=== PATIENT | male | born 1995 | race Caucasian/White ===

== ENCOUNTER → 2019-12-22 15:32 | Outpatient (CLI) | payer OTHER, SELFPAY ==
[2014-08-14 17:52] VITALS: BMI 39.7
[2019-12-22 17:37] LABS: Absolute Lymphocyte Count 2.31 X10^3/uL (0.83-4.51); Absolute Neutrophil Count 7.2 X10^3/uL (2.0-7.7); Hematocrit 46.7 % (40-54); Lymphocyte # 2.31 X10^3/ul (4.0); Lymphocyte % 22.3 % (19-41); Mean Corp Hgb Conc 34.3 g/dL (32-36); Mean Corpuscular Hgb 29.3 pg (27.0-32.0); Mean Corpuscular Volume 85.5 fL (80-94); Mean Platelet Vol. 11.3 fl (6.2-12.0); Monocyte# 0.59 X10^3/uL; Monocyte% 5.7 % (0-10); NRBC Flagged by Analyzer 0 % (0-5); Neutrophil # 7.22 X10^3/uL (2.7-7.7); Neutrophil % 69.6 % (47-70); Platelet Count 288 K/mm3 (150-450); RBC Distribution Width CV 11.9 % (11.6-14.6); RBC Distribution Width SD 37.1 fl (35.1-43.9); Red Blood Count 5.46 M/mm3 (4.6-6.2); White Blood Count 10.4 K/mm3 (4.4-11.0)
[2019-12-22 18:01] LABS: ALB/GLOB Ratio 1.2 RATIO (0.9-2.4); AST(SGOT) 13 U/L (15-37); Alanine Aminotransfer ALT/SGPT 47 U/L (16-61); Albumin, Serum 4.6 g/dL (3.2-5.0); Alkaline Phosphatase 91 U/L (45-117); Anion Gap 7 (5-15); BUN 12 mg/dL (7-18); BUN/Creat Ratio 10.6 RATIO (10-20); Calcium,Total 9.3 mg/dL (8.5-10.1); Chloride 104 mmol/L (98-107); Creatinine, Serum 1.13 mg/dL (0.70-1.30); EST Glomerular Filtration Rate 84 mL/min (>60); Est Glom Filt Rate - Afr Amer 102 mL/min (>60); Globulin 3.7 g/dL (2.2-4.2); Glucose 90 mg/dL (74-106); Potassium 4.2 mmol/L (3.5-5.1); Protein, Total 8.3 g/dL (6.4-8.2); Sodium Level 138 mmol/L (136-145); Thyroid Stim Hormone (TSH) 0.85 uIU/mL (0.358-3.74)
== END ==
PROVIDERS: PCP Family Medicine; Referring Provider Family Medicine; Visit Provider Family Medicine
DX: F20.9 Schizophrenia, unspecified (principal)
CPT/HCPCS: 36415; 80053; 84443; 85025

== ENCOUNTER 2020-01-10 15:31 | Emergency (ER) | payer OTHER, SELFPAY ==
[2020-01-10 15:32] VITALS: BP 153/90; PULSE 82; RESP 16; TEMP 36.8; O2SAT 99
[2020-01-10 15:33] VITALS: BP 147/89; PULSE 82; RESP 14; TEMP 36.9; O2SAT 100; BMI 28.9
--- NOTE | 2020-01-10 15:46 | ED.RN ---
start Abilify 2 weeks ago. states I'm taking it like I'm suppose too. constanza, rn [id number]
--- NOTE | 2020-01-10 15:56 | EKG12_ITS ---
Test Reason : Blood Pressure : / mmHG Vent. Rate : 087 BPM Atrial Rate : 087 BPM P-R Int : 144 ms QRS Dur : 082 ms QT Int : 336 ms P-R-T Axes : 044 001 022 degrees QTc Int : 404 ms Normal sinus rhythm Normal ECG Confirmed by MARCELO FELIZ, LORE ([id number]), aerodynamics teacher CURLY ARCE ([id number]) on 01/11/2020 9:05:24 AM Referred By: CHRISTOPHER Confirmed By:LORE ROBERTSON MD
[2020-01-10 16:22] LABS: Absolute Lymphocyte Count 2.63 X10^3/uL (0.83-4.51); Absolute Neutrophil Count 6.5 X10^3/uL (2.0-7.7); Eosinophil# 0.28 X10^3/uL; Eosinophils% 2.8 % (0-5); Hematocrit 45.6 % (40-54); Hemoglobin 15.7 g/dL (13.0-16.5); Lymphocyte # 2.63 X10^3/ul (4.0); Lymphocyte % 25.9 % (19-41); Mean Corp Hgb Conc 34.4 g/dL (32-36); Mean Corpuscular Hgb 29.6 pg (27.0-32.0); Mean Platelet Vol. 10.5 fl (6.2-12.0); Monocyte# 0.62 X10^3/uL; Monocyte% 6.1 % (0-10); NRBC Flagged by Analyzer 0 % (0-5); Neutrophil # 6.48 X10^3/uL (2.7-7.7); Neutrophil % 63.9 % (47-70); Platelet Count 261 K/mm3 (150-450); RBC Distribution Width CV 12.1 % (11.6-14.6); RBC Distribution Width SD 38.5 fl (35.1-43.9); White Blood Count 10.1 K/mm3 (4.4-11.0)
--- NOTE | 2020-01-10 16:26 | CT_ITS ---
STUDY: CT BRAIN WITHOUT CONTRAST REASON FOR EXAM: Male, 24 years old. ALTERED MENTAL STATUS, SAW OBJECT AT HOME THAT WASN''T THERE, THOUGHTS TO HARM OTHERS TECHNIQUE: Transaxial CT imaging of the brain was performed without administration of intravenous contrast material. Individualized dose optimization techniques were used for this CT. COMPARISON: No relevant priors. FINDINGS: Normal soft tissue structures. Normal calvarium. Normal size ventricles and extra-axial spaces for the patient''s age. Normal white matter tracts of the cerebral hemispheres. Normal basal ganglia and thalami. Normal brainstem. Normal cerebellum. There is no intracranial hemorrhage. There are no findings of an acute ischemic infarction. Normal visualized paranasal sinuses. CT/Brain/Head without Contrast IMPRESSION: Normal unenhanced CT scan of the brain. Electronically Signed: Wei Schulz MD at 16:54 EDT , Service support ,
--- NOTE | 2020-01-10 16:27 | ED.RN ---
discussion with ed dr about risk of harm to self and staff. sitter placed at bedside per dr orders. violent V hanging in doorway. discussion with sitter about not barring patients exit if he tries to force is way out. security notified about patient. dulce leos, rn [id number]
--- NOTE | 2020-01-10 16:31 | ED.VIS.GEN ---
History of Present Illness Chief Complaint: Suicidal Informant: Patient Narrative: 24-year-old male was brought to the emergency department with police after the police were called to his primary care physician's office. The patient was reportedly expressing suicidal and homicidal thoughts. Patient tells me that for the past several years he has had thoughts of harming himself and others. He has had auditory and visual hallucinations. The auditory hallucinations can consist of sounds and voices. Sometimes the voices are clear and other times they are mumbled. He tells me that when they are clear sometimes they tell him to do things. However he abruptly stops that line of conversation. He states that he has variations in sleep sometimes getting very little sleep and other times sleeping 12 or more hours. 2 weeks ago he started Abilify through his primary care physician. He has never reached out to anyone regarding his psychiatric symptoms until recently. He denies any prior TBI. Past Medical History - Allergies and Home Meds Allergies/Adverse Reactions: Allergies No Known Allergies Allergy (Verified 08/14/14 11:38) Primary Care Physician: Jamie Weiss MD [Primary Care Provider] - Prior records reviewed: Yes Surgical History: noncontributory Smoking Status: Heavy Smoker (>10/day) Drugs: None Review of Systems General: Denies: Chills, Fever, Sweats Eyes: Denies: Visual changes - bilaterally, Diplopia ENT: Denies: Rhinorrhea, Sore throat Cardiovascular: Denies: Chest pain, Palpitations Respiratory: Denies: Dyspnea, Cough, Dyspnea on exertion Gastrointestinal: Denies: Abdominal pain, Nausea, Vomiting, Diarrhea, Melena, Hematochezia Genitourinary: Denies: Dysuria, Hematuria, Frequency Musculoskeletal: Denies: Back pain, Extremity Pain Skin: Denies: Rash, Wounds Neurological: Denies: Headache, Weakness, Numbness Psych: Reports: Depression, Suicidal thoughts, - - Homicidal thoughts, - - Auditory visual hallucinations Physical Exam Vital Signs/Narrative: Vital Signs Temp Pulse Resp BP Pulse Ox 01/10/20 15:33 98.4 F 82 14 147/89 H 100 01/10/20 15:32 98.3 F 82 16 153/90 H 99 Inital Vital Signs reviewed: Yes General: Well nourished, Well developed, No Acute Distress Head: Normocephalic, Atraumatic Eyes: Perrl, EOMI ENT: Moist mucous membranes, No rhinorrhea Neck: Supple, Nontender Cardiovascular: Regular rate, Regular rhythm, No murmurs Respiratory: No distress, CTA bilaterally, Chest nontender Abdomen: Soft, Nontender, Nondistended, Normal bowel sounds Back: Nontender, Normal Inspection Extremities: Nontender, No edema Skin: Normal color, No rash Neurological: Alert, Oriented x3, Cranial nerves II-XII grossly intact, Normal Strength, Normal Sensation Psychological: - - Patient states he does have thoughts of harming himself and others at times. He admits to visual hallucinations as well as auditory. He has a blunted affect. He appears internally agitated. He has linear thinking. He abruptly cut off the interview when discussing the voices. Diagnostic/Tx/Re-eval - EKG Initial EKG Interpretation: Sinus Rhythm - EKG demonstrates a normal sinus rhythm at a rate of 87 without ectopy or concerning features of ACS. - Medical Decision Making The patient I believe needs to be psychiatrically evaluated. He accepted an offer to provide him Geodon to help him relax. I am going to have social work assistance in placing him. We will work on medically clearing him. ED Disposition - Plan for ED Patient: Disposition: Psychiatric Hospital or Unit Diagnosis: Schizophrenia, Hallucinations, Homicidal thoughts, Suicidal thoughts Referrals: Jamie Weiss MD [Primary Care Provider] -
[2020-01-10 16:35] LABS: ALB/GLOB Ratio 1.2 RATIO (0.9-2.4); AST(SGOT) 12 U/L (15-37); Alanine Aminotransfer ALT/SGPT 51 U/L (16-61); Albumin, Serum 4.2 g/dL (3.2-5.0); Alkaline Phosphatase 87 U/L (45-117); Anion Gap 6 (5-15); BUN 13 mg/dL (7-18); BUN/Creat Ratio 13.9 RATIO (10-20); Calcium,Total 8.5 mg/dL (8.5-10.1); Chloride 104 mmol/L (98-107); Creatinine, Serum 0.94 mg/dL (0.70-1.30); EST Glomerular Filtration Rate 104 mL/min (>60); Est Glom Filt Rate - Afr Amer 126 mL/min (>60); Estimated Creatinine Clearance 124.04 ml/min; Globulin 3.5 g/dL (2.2-4.2); Glucose 90 mg/dL (74-106); Potassium 4.1 mmol/L (3.5-5.1); Protein, Total 7.7 g/dL (6.4-8.2); Sodium Level 139 mmol/L (136-145)
[2020-01-10] MEDS: Ziprasidone IM 20 MG/ML VIAL 10 MG IM ×2 (16:35→18:50)
[2020-01-10 17:01] VITALS: RESP 16
[2020-01-10 17:39] LABS: Amphetamine Urine VISTA NEGATIVE (<1000 ng/mL); Barbiturate Urine VISTA NEGATIVE (< 200 ng/mL); Benzodiazepine Urine VISTA NEGATIVE (< 200 ng/mL); Cocaine Urine VISTA NEGATIVE (< 300 ng/mL); Ecstacy Urine VISTA NEGATIVE (< 500 ng/mL); Methadone Urine VISTA NEGATIVE (< 300 ng/mL); PCP Urine VISTA NEGATIVE (< 25 ng/mL); THC Urine VISTA NEGATIVE (< 50 ng/mL); Vista UDS pH Range 5
--- NOTE | 2020-01-10 17:41 | CM.ED ---
SOCIAL WORK Informant: Dr. Sanches Reason for Consult: Suicidal and Homicidal Ideations Chief Complaint: Patient presents to [facility] ER from Dr. Weiss's office by [facility] police for suicidal and homicidal ideations. Marital/Social History: Single Living Situation: Lives home with family Support/Resources: Myself History: None Education and Employment History: Patient reports has Bachelor's Degree in [employer]. Patient states works part-time at [employer] [facility] [employer] Treatment/History: Patient reports no diagnosis of mental health. Patient admits to anxiety, auditory hallucinations, paranoia and delusions. Patient states is prescribed Abilify but I thought it was for heartburn. Triggers/Stressors: When asked about triggers or stressors patient states, depends on the day. Coping Skills: Positive self-talk Abuse Issues: Patient denies any history of emotional, physical or sexual abuse. Substance Abuse: Patient denies any history of substance abuse. Patient states I do smoke cigarettes. Patient reports to smoke 1 pack of cigarettes every 2 days. Risk to Self/Others: Suicidal: Patient reports to have suicidal thoughts at times. Patient currently denies thoughts, plan or intent. Homicidal: Patient admits to homicidal thoughts at times. Patient states, I can normally calm myself down. Mental Status Exam: Orientation: A&Ox3 Memory: Fair Appearance/General Behavior: agitated, calm Mood/Affect: flat, depressed, guarded Communication Pattern: limited eye contact, responds to questions Judgment: Poor Assessment: Collaboration with Dr. Sanches after MD evaluation. Dr. Sanches recommending inpatient psych hospitalization. Patient discussed command hallucinations and quickly dropped conversation with Dr. Sanches when hallucinations were being explored. Patient with suicidal and homicidal ideations at physicians office prior to arrival to [facility] ER at Dr. Weiss's office. Met with patient in room. Introduced role and reason for referral. Patient sitting up in bed. Patient with limited eye contact and flat affect throughout assessment. Patient admits to suicidal and homicidal ideation at times. Patient states, I discussed some things with my doctor and then I was brought here. Patient admits to auditory hallucinations, delusions and paranoia. Patient states this began several years ago and recently has been unable to control them. Patient in agreement with hospitalization. [place]ip has been completed by Dr. Sanches. This worker to facilitate placement. Plan: Referral for inpatient psych hospitalization Kimberly Sage BORING MACHINE OPERATOR, FAMILY WORKER
--- NOTE | 2020-01-10 17:57 | CM.ED ---
SOCIAL WORK Referral faxed and called to [facility]. Will fax COVID-19 results once received. Pending review at this time. Kimberly Sage, PRESERVATIONIST, FORENSIC MANAGER
[2020-01-10 19:00] VITALS: RESP 16
--- NOTE | 2020-01-10 19:15 | CM.ED ---
SOCIAL WORK Patient accepted to [facility] pending negative COVID test. Awaiting results at this time. Will fax once received. Intake to provide accepting information once COVID test results received. Kimberly Sage MSW, COMMERCIAL ACCOUNT OFFICER
--- NOTE | 2020-01-10 20:15 | CM.ED ---
SOCIAL WORK Negative COVID-19 results and copy of [place] Slip faxed to [facility]. Kimberly Sage, TRAINING PROJECT MANAGER, MANAGER PRODUCT SUPPORT
[2020-01-10 20:19] VITALS: BP 120/59; PULSE 77; RESP 16; TEMP 36.6; O2SAT 98
--- NOTE | 2020-01-10 20:48 | CM.ED ---
SOCIAL WORK Received call back from [facility] with [facility]. Patient accepted by Dr. Tay. Nurse to call report to [phone]. Per Homa, transportation arranged with [place] to pick patient up at 10p. Staff nicholas. Kimberly Sage MSW, SENIOR JAVA DEVELOPER
--- NOTE | 2020-01-10 20:56 | CM.ED ---
SOCIAL WORK Call to patient's parents per request. No answer, left voicemail message with this worker's contact information. Patient updated. D. Chu, SENIOR HR MANAGER, SUPPLY CHAIN PROJECT MANAGER
== END 2020-01-10 21:45 ==
PROVIDERS: Emergency Provider Emergency Medicine; PCP Family Medicine
DX: F20.9 Schizophrenia, unspecified (principal); R45.850 Homicidal ideations; R45.851 Suicidal ideations; F17.200 Nicotine dependence, unspecified, uncomplicated
CPT/HCPCS: 70450; 80053; 80307; 80320; 85025; 87635; 93005; 96372; 99283; G0480; J3486; U0003

== ENCOUNTER → 2020-06-27 11:54 | Outpatient (CLI) | payer OTHER, SELFPAY ==
[2020-06-27 15:22] LABS: Absolute Lymphocyte Count 2.36 X10^3/uL (0.83-4.51); Absolute Neutrophil Count 5.9 X10^3/uL (2.0-7.7); Basophil# 0.09 X10^3/uL; Eosinophil# 0.23 X10^3/uL; Eosinophils% 2.5 % (0-5); Hematocrit 45.7 % (40-54); Hemoglobin 15.4 g/dL (13.0-16.5); Lymphocyte # 2.36 X10^3/ul (4.0); Lymphocyte % 25.4 % (19-41); Mean Corp Hgb Conc 33.7 g/dL (32-36); Mean Corpuscular Hgb 29.9 pg (27.0-32.0); Mean Corpuscular Volume 88.7 fL (80-94); Mean Platelet Vol. 11.1 fl (6.2-12.0); Monocyte# 0.67 X10^3/uL; Monocyte% 7.2 % (0-10); NRBC Flagged by Analyzer 0 % (0-5); Neutrophil % 63.4 % (47-70); Platelet Count 270 K/mm3 (150-450); RBC Distribution Width CV 12.3 % (11.6-14.6); RBC Distribution Width SD 39.9 fl (35.1-43.9); Red Blood Count 5.15 M/mm3 (4.6-6.2); White Blood Count 9.3 K/mm3 (4.4-11.0)
[2020-06-27 15:50] LABS: ALB/GLOB Ratio 1.2 RATIO (0.9-2.4); AST(SGOT) 34 U/L (15-37); Alanine Aminotransfer ALT/SGPT 88 U/L (16-61); Albumin, Serum 4.4 g/dL (3.2-5.0); Alkaline Phosphatase 78 U/L (45-117); Anion Gap 5 (5-15); BUN 18 mg/dL (7-18); BUN/Creat Ratio 18.1 RATIO (10-20); Chloride 103 mmol/L (98-107); EST Glomerular Filtration Rate 97 mL/min (>60); Est Glom Filt Rate - Afr Amer 117 mL/min (>60); Globulin 3.6 g/dL (2.2-4.2); Glucose 87 mg/dL (74-106); Potassium 4.4 mmol/L (3.5-5.1); Sodium Level 137 mmol/L (136-145); Thyroid Stim Hormone (TSH) 0.93 uIU/mL (0.358-3.74)
== END ==
PROVIDERS: PCP Family Medicine; Visit Provider Family Medicine
DX: F20.9 Schizophrenia, unspecified (principal); I10 Essential (primary) hypertension
CPT/HCPCS: 36415; 80053; 84443; 85025

== ENCOUNTER 2021-04-23 14:34 | Emergency (ER) | payer OTHER, SELFPAY ==
[2021-04-23 14:38] VITALS: BP 164/78; PULSE 113; RESP 16; TEMP 36.6; O2SAT 100; BMI 37.7
--- NOTE | 2021-04-23 14:40 | EKG12_ITS ---
Test Reason : CP Blood Pressure : / mmHG Vent. Rate : 095 BPM Atrial Rate : 095 BPM P-R Int : 136 ms QRS Dur : 078 ms QT Int : 340 ms P-R-T Axes : 035 011 052 degrees QTc Int : 427 ms Normal sinus rhythm Normal ECG Confirmed by NOHEMI FELIZ, AMAN ([id number]), graphic editor CURLY ARCE ([id number]) on 04/24/2021 8:40:11 AM Referred By: RODOLFO/BB Confirmed By:AMAN SONG MD
[2021-04-23 14:49] VITALS: BP 139/70; PULSE 83; RESP 25; O2SAT 99
--- NOTE | 2021-04-23 14:53 | RAD_ITS ---
STUDY: X-RAY CHEST REASON FOR EXAM: Male, 25 years old. Chest pain TECHNIQUE: Single AP portable view of the chest. COMPARISON: None. FINDINGS: EKG electrodes are seen. Mild degree of increased markings in the right infrahilar region. Early right lower lobe infiltrate should be ruled out. There is no demonstrated pleural abnormality. Normal size heart. Normal mediastinum and lyly. Normal visualized pulmonary arteries. Normal visualized aortic arch and descending thoracic aorta. Normal visualized thoracic spine. Normal visualized ribs, clavicles, and shoulders. There is no demonstrated abnormality of the visualized soft tissue structures of the upper abdomen. RAD/Chest 1 View (Portable) IMPRESSION: Mild degree of increased markings in the right infrahilar region. Early infiltrate should be ruled out. Electronically Signed: Albaro Pettit MD at 15:23 EST ,
[2021-04-23 14:54] VITALS: O2SAT 100
[2021-04-23 15:00] LABS: Absolute Neutrophil Count 6.7 X10^3/uL (2.0-7.7); Basophil# 0.11 X10^3/uL; Eosinophil# 0.37 X10^3/uL; Eosinophils% 3.2 % (0-5); Hematocrit 44.1 % (40-54); Hemoglobin 15.1 g/dL (13.0-16.5); Lymphocyte % 31.3 % (19-41); Mean Corp Hgb Conc 34.2 g/dL (32-36); Mean Corpuscular Hgb 29.7 pg (27.0-32.0); Mean Corpuscular Volume 86.8 fL (80-94); Mean Platelet Vol. 10.6 fl (6.2-12.0); Monocyte# 0.68 X10^3/uL; Monocyte% 5.9 % (0-10); NRBC Flagged by Analyzer 0 % (0-5); Neutrophil # 6.68 X10^3/uL (2.7-7.7); Neutrophil % 58.1 % (47-70); Platelet Count 272 K/mm3 (150-450); RBC Distribution Width CV 12.2 % (11.6-14.6); RBC Distribution Width SD 39.1 fl (35.1-43.9); Red Blood Count 5.08 M/mm3 (4.6-6.2); White Blood Count 11.5 K/mm3 (4.4-11.0)
[2021-04-23 15:24] LABS: D-Dimer Quantitative (DVT/PE) <= 0.27 FEU/ug/m (0.27-0.49)
[2021-04-23 15:26] LABS: Anion Gap 6 (5-15); BUN 8 mg/dL (7-18); BUN/Creat Ratio 7.7 RATIO (10-20); Calcium,Total 8.5 mg/dL (8.5-10.1); Chloride 107 mmol/L (98-107); Creatinine, Serum 1.04 mg/dL (0.70-1.30); EST Glomerular Filtration Rate 91 mL/min (>60); Est Glom Filt Rate - Afr Amer 111 mL/min (>60); Estimated Creatinine Clearance 111.14 ml/min; Glucose 103 mg/dL (74-106); Potassium 3.7 mmol/L (3.5-5.1); Sodium Level 138 mmol/L (136-145); Troponin-I HS 5 pg/mL (3.0-78.0)
[2021-04-23 15:59] VITALS: PULSE 80; RESP 15; O2SAT 100
[2021-04-23 17:04] VITALS: BP 155/63; PULSE 66; RESP 22; O2SAT 100
[2021-04-23 17:10] LABS: Troponin-I HS 5 pg/mL (3.0-78.0)
--- NOTE | 2021-04-23 17:19 | EDS_ITS ---
HPI History of Present Illness Chief Complaint: Chest Pain Narrative Narrative: 25-year-old male presenting with chest pain. He describes it as sharp pain in the left upper chest which lasted about 2 seconds 2 h ago. He states that he felt a little bit nauseous and sweaty when this occurred. Patient states that he does not have any cardiac or pulmonary history. He is a smoker however. Patient had a return of this once and it was similar nature however with the first when he states he was a little bit lightheaded and sweaty and with the second 1 he did not have any associated symptoms. Patient denies fever, cough. He states prior to this he felt well. He does admit to drinking 2 energy drinks a day and states that this is unchanged. He drinks 1 in the morning 1 in the afternoon. Sometimes he does drink more than this. He doesn't have any milligrams of caffeine or any energy drinks. Denies history of DVT/PE and has no risk factors. PFSH PFSH Medical History Asthma Bipolar disorder Smoker Home Medications ziprasidone HCl 60 mg PO BID 04/23/21 [History Last Taken Unknown] Allergy/AdvReac Type Severity Reaction Status Date / Time No Known Allergies Allergy Verified 04/23/21 14:41 Surgical History History of appendectomy Social History Smoking Status: Heavy Smoker (>10/day) ROS [facility] ED Constitutional Constitutional ED: Denies chills or fever(s) Eyes Eyes: Denies blurry vision or change in vision ENT ENT ED: Denies rhinorrhea or sore throat Cardiovascular Cardiovascular: Reports as per HPI Respiratory/Chest Respiratory/Chest: Denies cough or dyspnea Gastrointestinal Gastrointestinal: Denies abdominal pain or nausea Genitourinary Genitourinary ED: Denies dysuria or hematuria Musculoskeletal Musculoskeletal: Denies arthralgias or myalgias Integumentary Denies abscess or rash Neurologic Neurologic: Denies headache(s) or weakness EXAM Physical Exam Const Vital Signs: 04/23/21 14:38 04/23/21 14:49 04/23/21 14:50 Temperature 97.8 F Temperature Source Temporal Pulse Rate 113 H 83 Respiratory Rate 16 25 H Respiratory Effort Normal Blood Pressure 164/78 H 139/70 H Blood Pressure Mean 106 93 Pulse Ox 100 99 Oxygen Delivery Method Room Air Room Air 04/23/21 14:54 04/23/21 15:59 04/23/21 17:04 Temperature Temperature Source Pulse Rate 80 66 Respiratory Rate 15 22 H Respiratory Effort Blood Pressure 155/63 H Blood Pressure Mean 93 Pulse Ox 100 100 100 Oxygen Delivery Method Room Air Room Air Room Air Positive well nourished General Appearance ED: NAD; Negative for pallor HEENT Reports moist mucous membranes normocephalic and atraumatic Eyes PERRL and EOMs intact bilaterally General Eye ED: Negative for pale conjunctiva or scleral icterus Neck no lymphadenopathy and supple Chest Wall inspection of chest normal Resp normal respiratory effort Effort and Inspection: respiratory distress Cardio regular rhythm Rate: tachycardic Extremity normal to inspection General Extremety ED: Negative for edema or tenderness General Extremity: Negative for edema Neuro oriented x3 Sensorium / Orientation: awake and alert Psych mental status grossly normal Skin General Skin Exam: Negative for jaundice or pallor Heart Score History: Slightly/Non-Suspicious ECG: Normal Age: </= 45 years Risk Factors: No Risk Factors Troponin: </= Normal Limit Score: 0 MDM MDM MDM Narrative Medical decision making narrative: Patient presenting with a sharp pain that happened twice. The first 1 was associated with lightheadedness, nausea, sweatiness. This lasted about 2 s. I obtained an EKG which on my interpretation shows a sinus tachycardia with a ventricular rate of 95 bpm without sign of ischemic change or dysrhythmia. Chest x-ray on my interpretation does not show any acute cardiopulmonary process however the radiologist does feel that there may be some increased markings in the right infrahilar region. Clinically the patient is not hypoxic he he is not tachypneic. He is a little tachycardic but also had 2 energy drinks today. His heart rate is now 66 after being evaluated. D-dimer is negative. CBC and BMP are unremarkable. He he has 2 troponins are 2 h apart which were both 5. I feel this point the patient is safe to be discharged home. I did offer a Covid swab due to the reading on the chest x-ray however the patient declines this. I feel that given the normal vital signs other than the tachycardia which I can attribute to the energy drinks, he has a negative D-dimer which would make Covid less likely. Patient will be discharged home stable condition. Impression: 1. Chest pain noncardiac 2. Lightheadedness 3. Nausea Lab Data Labs: Laboratory Results - last 24 hr 04/23/21 04/23/21 04/23/21 14:50 14:50 14:50 WBC 11.5 H RBC 5.08 Hgb 15.1 Hct 44.1 MCV 86.8 MCH 29.7 MCHC 34.2 RDW Std Deviation 39.1 RDW Coeff of Debra 12.2 Plt Count 272 MPV 10.6 Immature Gran % (Auto) 0.500 Neut % (Auto) 58.1 Lymph % (Auto) 31.3 [place] % (Auto) 5.9 Eos % (Auto) 3.2 Baso % (Auto) 1.0 Absolute Neuts (auto) 6.7 Absolute Lymphs (auto) 3.60 Nucleated RBC % 0 D-Dimer Quant (PE/DVT) <= 0.27 Sodium 138 Potassium 3.7 Chloride 107 Carbon Dioxide 25.0 Anion Gap 6 BUN 8 Creatinine 1.04 Estim Creat Clear Calc 111.14 Est GFR (MDRD) Af Amer 111 Est GFR (MDRD) Non-Af 91 BUN/Creatinine Ratio 7.7 L Glucose 103 Calcium 8.5 Troponin I High Sens 5 04/23/21 16:35 WBC RBC Hgb Hct MCV MCH MCHC RDW Std Deviation RDW Coeff of Debra Plt Count MPV Immature Gran % (Auto) Neut % (Auto) Lymph % (Auto) [place] % (Auto) Eos % (Auto) Baso % (Auto) Absolute Neuts (auto) Absolute Lymphs (auto) Nucleated RBC % D-Dimer Quant (PE/DVT) Sodium Potassium Chloride Carbon Dioxide Anion Gap BUN Creatinine Estim Creat Clear Calc Est GFR (MDRD) Af Amer Est GFR (MDRD) Non-Af BUN/Creatinine Ratio Glucose Calcium Troponin I High Sens 5 Radiography Diagnostic Testing: Clinical Impression(s) from Imaging Studies Chest X-Ray 04/23/21 14:53 IMPRESSION: Mild degree of increased markings in the right infrahilar region. Early infiltrate should be ruled out. Electronically Signed: Albaro Pettit MD at 15:23 EST , Discharge Plan Triage Chief Complaint: Chest Pain ED Provider: Elmo Blakely Dx/Rx/DC Orders Prescriptions: No Action ziprasidone HCl 60 mg capsule 60 mg PO BID RF: 0 Primary Care Provider: Jamie Weiss
[2021-04-23 18:04] VITALS: BP 134/87; PULSE 91; RESP 15; O2SAT 99
== END 2021-04-23 18:06 | disposition home or self-care (01) ==
PROVIDERS: Emergency Provider Student in an Organized Health Care Education/Training Program; PCP Family Medicine; Visit Provider Student in an Organized Health Care Education/Training Program
DX: R07.89 Other chest pain (principal); F31.9 Bipolar disorder, unspecified; R42 Dizziness and giddiness; R11.0 Nausea; F17.200 Nicotine dependence, unspecified, uncomplicated; Z79.899 Other long term (current) drug therapy
CPT/HCPCS: 71045; 80048; 84484; 85025; 85379; 93005; 99284; A4216

== ENCOUNTER → 2022-03-26 | Outpatient (CLI) | payer OTHER, SELFPAY ==
--- NOTE | 2022-03-26 15:22 | RAD_ITS ---
EXAM: XR ABDOMEN, 2 VIEWS CLINICAL INDICATION: LLQ PAIN TECHNIQUE: Frontal view of the abdomen/pelvis with upright view of the abdomen. This report was created using go2 media report generation technology. COMPARISON: None. FINDINGS: LOWER THORAX: No acute pathology. INTRAPERITONEAL SPACE: No free air. GASTROINTESTINAL TRACT: Unremarkable. Non-obstructive. No bowel or stomach distention. ORGANS: Unremarkable as visualized. No organomegaly. No abnormal calcifications. BONES/JOINTS: No acute pathology. SOFT TISSUES: No acute pathology. RAD/Abd Inc Decub and/or Erect IMPRESSION: Unremarkable abdominal series. Electronically Signed: Jsutus Talamantes MD at 16:54 EST ,
[2022-03-26 18:04] LABS: Absolute Lymphocyte Count 3.05 X10^3/uL (0.83-4.51); Absolute Neutrophil Count 6.6 X10^3/uL (2.0-7.7); Basophil# 0.11 X10^3/uL; Eosinophils% 3.7 % (0-5); Hematocrit 43.7 % (40-54); Hemoglobin 14.6 g/dL (13.0-16.5); Lymphocyte # 3.05 X10^3/ul (0.83-4.51); Mean Corp Hgb Conc 33.4 g/dL (32-36); Mean Corpuscular Hgb 29.1 pg (27.0-32.0); Mean Corpuscular Volume 87.1 fL (80-94); Mean Platelet Vol. 10.9 fl (6.2-12.0); Monocyte# 0.67 X10^3/uL; Monocyte% 6.2 % (0-10); NRBC Flagged by Analyzer 0 % (0-5); Neutrophil # 6.59 X10^3/uL (2.7-7.7); Neutrophil % 60.5 % (47-70); Platelet Count 278 K/mm3 (150-450); RBC Distribution Width CV 12.4 % (11.6-14.6); RBC Distribution Width SD 39.5 fl (35.1-43.9); Red Blood Count 5.02 M/mm3 (4.6-6.2); White Blood Count 10.9 K/mm3 (4.4-11.0)
[2022-03-26 18:34] LABS: ALB/GLOB Ratio 1.1 RATIO (0.9-2.4); AST(SGOT) 18 U/L (15-37); Alanine Aminotransfer ALT/SGPT 65 U/L (16-61); Alkaline Phosphatase 100 U/L (45-117); Anion Gap 6 (5-15); BUN 13 mg/dL (7-18); CRP 7.49 mg/L (0.0-3.0); Calcium,Total 8.7 mg/dL (8.5-10.1); Chloride 102 mmol/L (98-107); Creatinine, Serum 0.93 mg/dL (0.70-1.30); EST Glomerular Filtration Rate 103 mL/min (>60); Est Glom Filt Rate - Afr Amer 125 mL/min (>60); Globulin 3.5 g/dL (2.2-4.2); Glucose 84 mg/dL (74-106); Potassium 4.2 mmol/L (3.5-5.1); Protein, Total 7.5 g/dL (6.4-8.2); Sodium Level 139 mmol/L (136-145)
== END | disposition home or self-care (01) ==
LOC: MTLAB 15:21
PROVIDERS: PCP Family Medicine; Referring Provider Family Medicine; Visit Provider Family Medicine
DX: R10.32 Left lower quadrant pain (principal)
CPT/HCPCS: 36415; 74019; 80053; 85025; 86140

== ENCOUNTER 2023-06-27 04:49 | Emergency (ER) | payer OTHER, SELFPAY ==
[2023-06-27 04:50] VITALS: BP 196/121; PULSE 90; RESP 17; TEMP 36.2; O2SAT 100; BMI 35.4
--- NOTE | 2023-06-27 04:50 | EKG12_ITS ---
Test Reason : CP Blood Pressure : / mmHG Vent. Rate : 084 BPM Atrial Rate : 084 BPM P-R Int : 138 ms QRS Dur : 074 ms QT Int : 332 ms P-R-T Axes : 019 -01 018 degrees QTc Int : 392 ms Normal sinus rhythm Normal ECG Confirmed by Leon Mock ([id number]), digital editor NASIM YOUSSEF ([id number]) on 06/30/2023 1:26:34 PM Referred By: LES Confirmed By:Leon Mock
--- NOTE | 2023-06-27 05:08 | RAD_ITS ---
STUDY: X-RAY CHEST REASON FOR EXAM: Male, 27 years old. Chest pain TECHNIQUE: PA and lateral views of the chest. COMPARISON: Comparison is made with prior study dated April 23, 2021. FINDINGS: EKG electrodes are seen. The lungs are clear and expanded. There is no demonstrated pleural abnormality. Normal size heart. Normal mediastinum and lyly. Normal visualized pulmonary arteries. Normal visualized aortic arch and descending thoracic aorta. Normal visualized thoracic spine. Normal visualized ribs, clavicles, and shoulders. There is no demonstrated abnormality of the visualized soft tissue structures of the upper abdomen. RAD/Chest PA and Lateral IMPRESSION: Normal x-ray examination of the chest. Electronically Signed: Albaro Pettit MD at 8:06 EDT ,
--- NOTE | 2023-06-27 05:10 | EDS_ITS ---
HPI History of Present Illness Chief Complaint: Chest Pain Informant: patient and parent Narrative Narrative: Patient is a 27-year-old male with past medical history of bipolar disorder asthma and nicotine use. He states over the last 3 days he will have intermit tent clutching left-sided chest pain. He states will last for a few seconds and then resolve. He states that today he felt the symptoms were lasting longer and secondary to this comes in for evaluation. He denies any history of illicit drug use he denies any recent travel surgery or history of DVT/PE. He denies any family history of cardiac disease at a young age. He also denies any recent trauma or excessive activity. However with the recurrent symptoms and his concern this could be cardiac he presents for evaluation [facility] Medical History Asthma Bipolar disorder Smoker Home Medications ziprasidone HCl 60 mg capsule 60 mg PO DAILY 04/23/21 [History Last Taken Unk nown] Allergy/AdvReac Type Severity Reaction Status Date / Time No Known Allergies Allergy Verified 06/27/23 04:54 Surgical History History of appendectomy Social History Smoking Status: Former smoker ROS [facility] ED Constitutional Constitutional ED: Denies chills or fever(s) ENT ENT ED: Denies sore throat Cardiovascular Cardiovascular: Reports chest pain; Denies palpitations or racing heartbeat Respiratory/Chest Respiratory/Chest: Denies cough or dyspnea Gastrointestinal Gastrointestinal: Denies abdominal pain, diarrhea, nausea or vomiting Genitourinary Genitourinary ED: Denies dysuria Musculoskeletal Musculoskeletal: Denies back pain or myalgias Integumentary Denies rash Neurologic Neurologic: Denies headache(s) Psychiatric Psychiatric: Reports anxiety Hematologic/Lymphatic Hematologic/Lymphatic: Denies easy bleeding or easy bruising EXAM Physical Exam Const Vital Signs: 06/27/23 04:50 06/27/23 04:54 06/27/23 05:49 Temperature 97.2 F L Temperature Source Temporal Pulse Rate 90 72 Respiratory Rate 17 18 Respiratory Effort Normal Blood Pressure 196/121 H 126/51 H Blood Pressure Mean 146 76 Pulse Ox 100 96 Oxygen Delivery Method Room Air Room Air 06/27/23 06:00 Temperature Temperature Source Pulse Rate 70 Respiratory Rate 16 Respiratory Effort Blood Pressure 128/86 H Blood Pressure Mean 100 Pulse Ox 96 Oxygen Delivery Method Room Air Positive well nourished and well developed General Appearance ED: well developed; Negative for pallor HEENT HEENT Narrative: Normocephalic atraumatic Eyes PERRL and EOMs intact bilaterally General Eye ED: Negative for scleral icterus Neck supple Neck Narrative: No nuchal rigidity or meningeal signs Chest Wall palpation of chest normal Chest Narrative: No overlying soft tissue change of the chest wall such as erythema to suggest cellulitis or abscess no abrasions or ecchymosis to suggest trauma No bony deformity or crepitus palpated Resp normal respiratory effort and clear to auscultation bilaterally Resp Narrative: Breath sounds are diminished throughout but overall clear to auscultation Cardio regular rate and regular rhythm Rate: other Other Details: Heart is regular rate and rhythm without murmurs rubs or gallop Radial and carotid pulses are equal and symmetric GI normal to inspection, nondistended, normoactive bowel sounds, non-tender, non- distended and no masses GI Narrative: No voluntary guarding or rigidity or pulsatile mass Auscultation: normoactive bowel sounds Palpation: soft Extremity normal to inspection Extremity Narrative: No asymmetric edema no pitting edema negative Homans' sign bilaterally Neuro oriented x3 and CN's II-XII intact bilaterally Sensorium / Orientation: alert Motor Exam: strength 5/5 throughout Psych Psych Narrative: Patient has a anxious affect Skin no rashes or lesions noted, no wounds and skin turgor normal General Skin Exam: Negative for jaundice or pallor MDM MDM MDM Narrative Medical decision making narrative: Patient arrived to the ER hypertensive otherwise with stable vitals. He reported that his chest pain was intermittent in nature and short-lived and not associated with nausea vomiting diaphoresis or shortness of breath. He also is low risk for cardiovascular disease as his only risk factor is nicotine use. He also denies any recent travel surgery or history of DVT/PE and is PERC negative so I felt no need for a D-dimer or CTA. Patient also denied any recent sick symptoms which would put him at risk for potential myocarditis. Even though he is low risk as he reported chest discomfort a cardiac workup was obtained. EKG was normal sinus rhythm and troponin is 6 going against acute coronary syndrome or myocarditis. There is no cardiac dysrhythmia noted while on the monitor in the ER. As he is PERC negative I do not feel need for a D-dimer or CTA. He had no clinically significant electrolyte abnormalities either and chest x-ray reveals no acute lung pathology. He was given Toradol Norflex and Ativan and his blood pressure improved and his symptoms resolved. Therefore at this time a s he is low risk for acute coronary syndrome and has a negative workup with improvement of symptoms there is no need for further evaluation and is otherwise safe for discharge History & Record Review Discussion w/independent historian: Patient and Family Lab Data Attestation: I reviewed the patient's lab results. Labs: Laboratory Results - last 24 hr 06/27/23 04:57 WBC 12.2 H RBC 5.18 Hgb 14.8 Hct 44.4 MCV 85.7 MCH 28.6 MCHC 33.3 RDW Std Deviation 38.5 RDW Coeff of Debra 12.4 Plt Count 317 MPV 10.9 Immature Gran % (Auto) 0.400 Neut % (Auto) 58.4 Lymph % (Auto) 30.7 Morgan % (Auto) 6.6 Eos % (Auto) 3.0 Baso % (Auto) 0.9 Absolute Neuts (auto) 7.1 Absolute Lymphs (auto) 3.74 Nucleated RBC % 0 Sodium 138 Potassium 4.1 Chloride 105 Carbon Dioxide 27.0 Anion Gap 6 BUN 19 H Creatinine 0.93 Estim Creat Clear Calc 148.33 Est GFR (MDRD) Af Amer 124 Est GFR (MDRD) Non-Af 102 BUN/Creatinine Ratio 20.5 H Glucose 95 Calcium 8.7 Magnesium 2.3 Troponin I High Sens 6 Radiography Diagnostic Testin view chest x-ray as interpreted by the emergency medicine physician reveals no acute infiltrate pneumothorax pleural effusion or widening of the mediastinum Discharge Plan Triage Chief Complaint: Chest Pain ED Provider: Jeremy Pineda Dx/Rx/DC Orders Clinical Impression: Acute nonspecific chest pain with low risk of coronary artery disease, Nicotine use disorder, Bipolar disorder Instructions: ED Chest Pain, Uncertain Cause Prescriptions: No Action ziprasidone HCl 60 mg capsule 60 mg PO DAILY Patient Comments: TAKE 1 CAPSULE BY MOUTH TWICE DAILY Primary Care Provider: Jamie Weiss Referrals: Jamie Weiss MD [Primary Care Provider] - Activity Restrictions/Additional Instructions: Your workup today showed no signs of abnormal heart rhythm or heart damage. Therefore follow-up with your family doctor to discuss further testing studies if symptoms persist and return to the ER should you have any further concerns Disposition Disposition: Home, Self Care
[2023-06-27 05:18] LABS: Absolute Lymphocyte Count 3.74 X10^3/uL (0.83-4.51); Absolute Neutrophil Count 7.1 X10^3/uL (2.0-7.7); Basophil# 0.11 X10^3/uL; Basophil% 0.9 % (0-1); Eosinophil# 0.36 X10^3/uL; Hematocrit 44.4 % (40-54); Hemoglobin 14.8 g/dL (13.0-16.5); Lymphocyte # 3.74 X10^3/ul (0.83-4.51); Lymphocyte % 30.7 % (19-41); Mean Corp Hgb Conc 33.3 g/dL (32-36); Mean Corpuscular Hgb 28.6 pg (27.0-32.0); Mean Corpuscular Volume 85.7 fL (80-94); Mean Platelet Vol. 10.9 fl (6.2-12.0); Monocyte% 6.6 % (0-10); NRBC Flagged by Analyzer 0 % (0-5); Neutrophil # 7.14 X10^3/uL (2.7-7.7); Neutrophil % 58.4 % (47-70); Platelet Count 317 K/mm3 (150-450); RBC Distribution Width CV 12.4 % (11.6-14.6); RBC Distribution Width SD 38.5 fl (35.1-43.9); Red Blood Count 5.18 M/mm3 (4.6-6.2); White Blood Count 12.2 K/mm3 (4.4-11.0)
[2023-06-27] MEDS: LORazepam 2 MG/ML Syringe 1 MG IV (05:33)
[2023-06-27 05:36] LABS: Anion Gap 6 (5-15); BUN 19 mg/dL (7-18); BUN/Creat Ratio 20.5 RATIO (10-20); Calcium,Total 8.7 mg/dL (8.5-10.1); Chloride 105 mmol/L (98-107); Creatinine, Serum 0.93 mg/dL (0.70-1.30); EST Glomerular Filtration Rate 102 mL/min (>60); Est Glom Filt Rate - Afr Amer 124 mL/min (>60); Estimated Creatinine Clearance 148.33 ml/min; Glucose 95 mg/dL (74-106); Magnesium 2.3 mg/dL (1.6-2.6); Potassium 4.1 mmol/L (3.5-5.1); Sodium Level 138 mmol/L (136-145); Troponin-I HS 6 pg/mL (3.0-78.0)
[2023-06-27 05:49] VITALS: BP 126/51; PULSE 72; RESP 18; O2SAT 96
[2023-06-27 06:00] VITALS: BP 128/86; PULSE 70; RESP 16; O2SAT 96
[2023-06-27] MEDS: Orphenadrine 60 MG/2 ML Ampul IV (06:26)
[2023-06-27] MEDS: Ketorolac 30 MG/ML Syringe IV (06:26)
[2023-06-27 06:58] VITALS: BP 130/81; PULSE 69; RESP 16; TEMP 36.2; O2SAT 99
== END 2023-06-27 06:59 | disposition home or self-care (01) ==
PROVIDERS: Emergency Provider Emergency Medicine; PCP Family Medicine; Visit Provider Emergency Medicine
DX: R07.9 Chest pain, unspecified (principal); F31.9 Bipolar disorder, unspecified; J45.909 Unspecified asthma, uncomplicated; Z87.891 Personal history of nicotine dependence
CPT/HCPCS: 71046; 80048; 83735; 84484; 85025; 93005; 96374; 96375; 99283; A4216

== ENCOUNTER 2023-11-05 23:05 | Emergency (ER) | payer OTHER, SELFPAY ==
[2023-11-05 23:05] VITALS: BP 157/101; PULSE 100; RESP 17; TEMP 36.1; O2SAT 97; BMI 34.7
[2023-11-05 23:31] LABS: Absolute Lymphocyte Count 3.33 X10^3/uL (0.83-4.51); Absolute Neutrophil Count 8.8 X10^3/uL (2.0-7.7); Basophil# 0.11 X10^3/uL; Basophil% 0.8 % (0-1); Eosinophil# 0.41 X10^3/uL; Hematocrit 42.8 % (40-54); Hemoglobin 14.8 g/dL (13.0-16.5); Lymphocyte # 3.33 X10^3/ul (0.83-4.51); Lymphocyte % 24.5 % (19-41); Mean Corp Hgb Conc 34.6 g/dL (32-36); Mean Corpuscular Hgb 29.1 pg (27.0-32.0); Mean Corpuscular Volume 84.3 fL (80-94); Mean Platelet Vol. 10.8 fl (6.2-12.0); Monocyte% 6.6 % (0-10); NRBC Flagged by Analyzer 0 % (0-5); Neutrophil % 64.7 % (47-70); Platelet Count 288 K/mm3 (150-450); RBC Distribution Width CV 12.8 % (11.6-14.6); Red Blood Count 5.08 M/mm3 (4.6-6.2); White Blood Count 13.6 K/mm3 (4.4-11.0)
[2023-11-05] MEDS: LORazepam 2 MG/ML Syringe IM (23:32)
[2023-11-05] MEDS: DiphenhydrAMINE 50 MG/ML Syringe 25 MG IM (23:32)
[2023-11-05 23:48] LABS: Anion Gap 7 (5-15); BUN 14 mg/dL (7-18); BUN/Creat Ratio 13.3 RATIO (10-20); Calcium,Total 8.7 mg/dL (8.5-10.1); Chloride 108 mmol/L (98-107); Creatinine, Serum 1.05 mg/dL (0.70-1.30); EST Glomerular Filtration Rate 89 mL/min (>60); Est Glom Filt Rate - Afr Amer 107 mL/min (>60); Glucose 123 mg/dL (74-106); Potassium 3.8 mmol/L (3.5-5.1); Sodium Level 141 mmol/L (136-145)
--- NOTE | 2023-11-06 03:10 | ED.RN ---
PT BEEN REFERRED TO ETHAN COYNE
--- NOTE | 2023-11-06 03:58 | EDS_ITS ---
HPI History of Present Illness Chief Complaint: Mental Health Informant: patient and parent Narrative Narrative: Patient is a 28-year-old male with past medical history of bipolar disorder. Reportedly he stopped taking his medications months ago. Father states that this morning he told him that he wanted to shoot himself with a gun. Father also states that it appears the patient has been hallucinating. The patient does state that this morning he tried to kill himself. With concern he is having an exacerbation of his psychosis and would potentially cause self-harm he was brought in for evaluation The patient does not offer much history and states that he does not want to answer questions [facility] Medical History Smoker Asthma Bipolar disorder Home Medications ?Medication ?Instructions ?Recorded ?Last Taken ?Type aripiprazole 5 mg tablet 5 mg PO QHS #90 tabs 10/15/23 Unknown Rx propranolol 10 mg tablet 10 mg PO TID PRN anxiety #90 tabs 10/15/23 Unknown Rx Allergy/AdvReac Type Severity Reaction Status Date / Time No Known Allergies Allergy Verified 11/05/23 23:13 Family History Other Alcoholism Diabetes Hypertension Melanoma Surgical History History of appendectomy Social History Smoking Status: Former smoker alcohol intake: never substance use type: does not use what type of physical activity do you participate in: none ROS ROS ED Review of Systems ROS Unobtainable: other Details: Unable to obtain review of systems as patient is uncooperative EXAM Physical Exam Const Vital Signs: 11/05/23 23:05 Temperature 97 F L Temperature Source Temporal Pulse Rate 100 Respiratory Rate 17 Blood Pressure 157/101 H Blood Pressure Mean 119 Pulse Ox 97 Oxygen Delivery Method Room Air Positive well nourished, well developed and obese General Appearance ED: well developed; Negative for pallor Nutritional Appearance: obese HEENT HEENT Narrative: Normocephalic atraumatic Eyes PERRL and EOMs intact bilaterally Neck supple Chest Wall palpation of chest normal Resp normal respiratory effort and clear to auscultation bilaterally Cardio regular rate and regular rhythm GI normal to inspection, nondistended, normoactive bowel sounds, non-tender, non- distended and no masses Auscultation: normoactive bowel sounds Palpation: soft Extremity normal to inspection Neuro CN's II-XII intact bilaterally and no sensory deficits noted Sensorium / Orientation: alert Motor Exam: strength 5/5 throughout Psych Psych Narrative: Patient has an agitated affect and does admit to suicidal ideation Skin no rashes or lesions noted and no wounds General Skin Exam: Negative for jaundice or pallor MDM MDM MDM Narrative Medical decision making narrative: Patient arrived to the ER hyper tensive but otherwise with vitals. Family reported he has stated he wanted to shoot himself with a gun and patient even stated that he tried to kill himself this morning. With his agitated affect report of suicidal ideation and the fact he has not been taking his medications he is high likelihood to harm himself and also is demonstrating that he is not caring for himself. Secondary to this it was felt that he will need placed in a psychiatric center for safety and care. Therefore a psychiatric workup was obtained which revealed no clinically significant finding. The patient was medically cleared and evaluated by crisis center. After crisis center evaluated the patient they do agree that placement is the most appropriate option at this time. [facility] was contacted and they do agree to accept the patient. The patient is hemodynamically stable and is medically cleared for transfer/placement in psychiatric hospital History & Record Review Discussion w/independent historian: Patient and Family Lab Data Attestation: I reviewed the patient's lab results. Labs: Laboratory Results - last 24 hr 11/05/23 23:20 WBC 13.6 H RBC 5.08 Hgb 14.8 Hct 42.8 MCV 84.3 MCH 29.1 MCHC 34.6 RDW Std Deviation 39.0 RDW Coeff of Debra 12.8 Plt Count 288 MPV 10.8 Immature Gran % (Auto) 0.400 Neut % (Auto) 64.7 Lymph % (Auto) 24.5 [place] % (Auto) 6.6 Eos % (Auto) 3.0 Baso % (Auto) 0.8 Absolute Neuts (auto) 8.8 H Absolute Lymphs (auto) 3.33 Nucleated RBC % 0 Sodium 141 Potassium 3.8 Chloride 108 H Carbon Dioxide 26.0 Anion Gap 7 BUN 14 Creatinine 1.05 Estim Creat Clear Calc 128.80 Est GFR (MDRD) Af Amer 107 Est GFR (MDRD) Non-Af 89 BUN/Creatinine Ratio 13.3 Glucose 123 H Calcium 8.7 Ethyl Alcohol 6.0 Discharge Plan Triage Chief Complaint: Mental Health ED Provider: Jeremy Pineda Dx/Rx/DC Orders Clinical Impression: Bipolar disorder, Depression with suicidal ideation Prescriptions: No Action aripiprazole 5 mg tablet 5 mg PO QHS Qty: 90 1RF propranolol 10 mg tablet 10 mg PO TID PRN (Reason: anxiety) Qty: 90 1RF Primary Care Provider: Tee Weiss Referrals: Tee Weiss MD [Primary Care Provider] - Print Language: [place] Island[place] Disposition Disposition: Psychiatric Hospital or Unit Discharge Location: [facility]
[2023-11-06] MEDS: LORazepam 1 MG Tablet 2 MG PO (06:00)
[2023-11-06 07:20] LABS: Amphetamine Urine VISTA NEGATIVE (<1000 ng/mL); Barbiturate Urine VISTA NEGATIVE (< 200 ng/mL); Benzodiazepine Urine VISTA NEGATIVE (< 200 ng/mL); Cocaine Urine VISTA NEGATIVE (< 300 ng/mL); Ecstacy Urine VISTA NEGATIVE (< 500 ng/mL); Methadone Urine VISTA NEGATIVE (< 300 ng/mL); PCP Urine VISTA NEGATIVE (< 25 ng/mL); THC Urine VISTA NEGATIVE (< 50 ng/mL); Vista UDS pH Range 5
[2023-11-06 07:46] VITALS: BP 132/86; PULSE 99; RESP 18; TEMP 36.5; O2SAT 99
== END 2023-11-06 07:46 ==
PROVIDERS: Emergency Provider Emergency Medicine; PCP Family Medicine; Visit Provider Emergency Medicine
DX: F31.9 Bipolar disorder, unspecified (principal); R45.851 Suicidal ideations; J45.909 Unspecified asthma, uncomplicated; E66.9 Obesity, unspecified; Z87.891 Personal history of nicotine dependence
CPT/HCPCS: 80048; 80307; 82077; 85025; 96372; 99285

== ENCOUNTER 2024-03-07 19:30 | Emergency (ER) | payer OTHER, SELFPAY ==
[2024-03-07 19:31] VITALS: BP 145/67; PULSE 90; RESP 16; TEMP 37.1; O2SAT 99; BMI 37.8
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
[2024-03-07 20:05] LABS: Absolute Lymphocyte Count 2.38 X10^3/uL (0.83-4.51); Absolute Neutrophil Count 6.9 X10^3/uL (2.0-7.7); Basophil# 0.09 X10^3/uL; Basophil% 0.9 % (0-1); Eosinophil# 0.26 X10^3/uL; Eosinophils% 2.5 % (0-5); Hematocrit 43.6 % (40-54); Hemoglobin 14.5 g/dL (13.0-16.5); Lymphocyte # 2.38 X10^3/ul (0.83-4.51); Mean Corp Hgb Conc 33.3 g/dL (32-36); Mean Corpuscular Hgb 28.5 pg (27.0-32.0); Mean Corpuscular Volume 85.7 fL (80-94); Mean Platelet Vol. 10.4 fl (6.2-12.0); Monocyte# 0.63 X10^3/uL; Monocyte% 6.1 % (0-10); NRBC Flagged by Analyzer 0 % (0-5); Neutrophil % 66.7 % (47-70); Platelet Count 242 K/mm3 (150-450); RBC Distribution Width CV 11.9 % (11.6-14.6); RBC Distribution Width SD 37.3 fl (35.1-43.9); Red Blood Count 5.09 M/mm3 (4.6-6.2); White Blood Count 10.3 K/mm3 (4.4-11.0)
[2024-03-07 20:17] LABS: Anion Gap 5 (5-15); BUN 17 mg/dL (7-18); BUN/Creat Ratio 16.5 RATIO (10-20); Calcium,Total 8.4 mg/dL (8.5-10.1); Chloride 107 mmol/L (98-107); Creatinine, Serum 1.03 mg/dL (0.70-1.30); EST Glomerular Filtration Rate 90 mL/min (>60); Est Glom Filt Rate - Afr Amer 109 mL/min (>60); Estimated Creatinine Clearance 137.04 ml/min; Glucose 119 mg/dL (74-106); Potassium 4.2 mmol/L (3.5-5.1); Sodium Level 140 mmol/L (136-145)
[2024-03-07 20:32] VITALS: BP 144/78; PULSE 88; RESP 16; O2SAT 99
[2024-03-07 20:43] LABS: Amphetamine Urine VISTA NEGATIVE (<1000 ng/mL); Barbiturate Urine VISTA NEGATIVE (< 200 ng/mL); Benzodiazepine Urine VISTA NEGATIVE (< 200 ng/mL); Cocaine Urine VISTA NEGATIVE (< 300 ng/mL); Ecstacy Urine VISTA NEGATIVE (< 500 ng/mL); Methadone Urine VISTA NEGATIVE (< 300 ng/mL); PCP Urine VISTA NEGATIVE (< 25 ng/mL); THC Urine VISTA NEGATIVE (< 50 ng/mL); Vista UDS pH Range 6
[2024-03-07 20:44] LABS: Alcohol, Blood (Medical)-Serum < 3.0 mg/dL
--- NOTE | 2024-03-07 20:57 | ED.RN ---
CALLED [facility], SPOKE WITH ANASTACIO. LET HIM KNOW PT IS MEDICALLY CLEAR AND READY TO BE ASSESSED. ANASTACIO STATED [facility] WOULD BE OVER TO EVALUATE PT. FAXED OVER [facility] @ 2054.
[2024-03-07 22:43] VITALS: BP 127/78; PULSE 77; RESP 16; O2SAT 95
--- NOTE | 2024-03-07 23:38 | NURSING ---
Jerald Steiner called to give report. Nurse not able to take report at this time. Will call back for report.
[2024-03-07 23:41] LABS: Bedside Glucose 87 mg/dL (74-106)
[2024-03-08 00:11] VITALS: BP 124/69; PULSE 81; RESP 16; TEMP 36.7; O2SAT 98
--- NOTE | 2024-03-08 00:11 | NURSING ---
Attempted 3 more times to call and give report. I was placed on hold for over 5 minutes. Unable to give report at this time.
--- NOTE | 2024-03-08 00:49 | NURSING ---
Pat Called from [facility]. Report given.
== END 2024-03-08 00:15 ==
PROVIDERS: Physician Assistant; Emergency Provider Emergency Medicine; PCP Family Medicine; Visit Provider Emergency Medicine
DX: R45.851 Suicidal ideations (principal); F25.9 Schizoaffective disorder, unspecified; F31.9 Bipolar disorder, unspecified; X78.1XXA Intentional self-harm by knife, initial encounter; S61.210A Laceration without foreign body of right index finger without damage to nail, initial encounter; J45.909 Unspecified asthma, uncomplicated; Z79.899 Other long term (current) drug therapy; Z87.891 Personal history of nicotine dependence
CPT/HCPCS: 80048; 80307; 82077; 82962; 85025; 99285